=== PATIENT | male | born 2005 | race Caucasian/White ===

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

== ENCOUNTER 2025-09-12 18:45 | Outpatient (REF) | payer MEDICAID, SELFPAY ==
[2025-09-12 20:50] LABS: Abs Immature Grans 0.02 10^3/uL (0.0-0.06); HCT 42.1 % (40.0-50.0); HGB 14.0 g/dL (13.5-17.5); Immature Grans % 0.3 %; MCH 28.2 pg (27.0-33.0); MCHC 33.3 % (32.0-36.0); MCV 85 fL (80-95); MPV 9.5 fL (8.0-11.0); Platelet Count 310 10^3/uL (130-400); RBC 4.97 10^6/uL (4.36-5.78); RDW 11.1 % (11.8-14.1); RDW-SD 34.5 fL; WBC 5.81 10^3/uL (4.4-10.8)
[2025-09-12 20:52] LABS: ESR 25 mm/hr (0-15)
[2025-09-13 17:50] LABS: CRP, High Sensitivity >15.00 mg/L (See Note)
[2025-09-14 10:38] LABS: Lyme Ab w Rflx to Lyme Confirm Positive (Negative)
[2025-09-14 14:15] LABS: Lyme IgG Ab Positive (Negative)
== END 2025-09-12 18:46 | disposition home or self-care (01) ==
LOC: NCHCN 18:45
PROVIDERS: PCP Family Medicine; Visit Provider Family Medicine
DX: M13.161 Monoarthritis, not elsewhere classified, right knee (principal)
CPT/HCPCS: 85652; 86141; 86617; 85025; 86618